=== PATIENT | female | born 1970 | race Caucasian/White ===

== ENCOUNTER 2023-09-05 17:38 | Emergency (ER) | payer MEDICAID ==
[~2023-09-05] VITALS: Ht 157.5 cm; Wt 72.0 kg
[2023-09-05 17:43] VITALS: TEMP 98.3; O2SAT 98
[2023-09-05] MEDS: SODIUM CHLORIDE 0.9% 1,000 ML IV ONE ×2 (18:52→20:30)
[2023-09-05] MEDS: FAMOTIDINE 20MG/2ML VIAL IV ONE (18:52)
[2023-09-05] MEDS: ONDANSETRON HCL 4MG/2ML INJ IV ONE (18:52)
[2023-09-05 19:01] LABS: HEMATOCRIT. 47.7 % (36.0-48.0); HEMOGLOBIN. 16.1 g/dL (12.0-16.0); MEAN CORPUSCULAR HEMOGLOBIN 29.2 pg (28.0-32.0); MEAN CORPUSCULAR HGB CONC 33.7 g/dL (31.0-37.0); MEAN CORPUSCULAR VOLUME 86.6 fL (81.0-99.0); MEAN PLATELET VOLUME 8.2 fl (7.4-10.4); PLATELET 373 x1000/uL (130-400); RED CELL DISTRIBUTION WIDTH 13.1 % (11.6-14.6); WHITE BLOOD COUNT 13.2 x1000/uL (4.5-11.0)
[2023-09-05 19:04] LABS: HCG SCREEN NEGATIVE
[2023-09-05 19:05] LABS: DIFFERENTIAL COMMENT 1
[2023-09-05 19:07] LABS: INR 0.9; PROTHROMBIN TIME 10.5 sec (9.6-11.0)
[2023-09-05 19:16] LABS: ALANINE AMINOTRANSFERASE 35 IU/L (10-49); ALBUMIN 5.7 g/dL (3.2-4.8); ASPARTATE AMINOTRANSFERASE 37 IU/L (<34); BILIRUBIN TOTAL 0.7 mg/dL (0.1-1.0); CALCIUM 10.4 mg/dL (8.7-10.4); CARBON DIOXIDE 22 mEq/L (21-32); CHLORIDE 107 mEq/L (98-107); CREATININE 1.9 mg/dL (0.6-1.0); GLUCOSE 159 mg/dL (70-105); POTASSIUM 4.1 mEq/L (3.5-5.1); PROTEIN TOTAL 10.3 g/dL (6.0-8.3); SODIUM 139 mEq/L (136-145); TROPONIN I HIGH SENSITIVITY 4 ng/L (3.0-34); UREA NITROGEN BLOOD 21 mg/dL (9-23)
[2023-09-05 19:17] LABS: ETHANOL BLOOD < 10 mg/dL (<10)
[2023-09-05 19:39] LABS: PLATELET ESTIMATE NORMAL
[2023-09-05 20:27] LABS: CLARITY URINE TURBID (CLEAR); COLOR URINE DARK YELLOW (YELLOW); GLUCOSE URINE NEGATIVE (NEGATIVE); KETONES URINE TRACE (NEGATIVE); LEUKOCYTE ESTERASE URINE NEGATIVE (NEGATIVE); NITRITE URINE NEGATIVE (NEGATIVE); OCCULT BLOOD URINE NEGATIVE (NEGATIVE); PROTEIN URINE 3+ (NEGATIVE); SPECIFIC GRAVITY URINE 1.023 (1.005-1.030)
[2023-09-05 20:50] LABS: BACTERIA URINE 4+; RBC URINE 0-2 /hpf (0-2); SQUAMOUS EPITHELIAL CELL URINE 2+ /lpf (RARE/1+); WBC URINE 0-2 /hpf (0-2)
[2023-09-05 20:51] LABS: FINE GRANULAR CASTS URINE 0-5 /lpf; HYALINE CASTS URINE 0-5 /lpf
[2023-09-05 20:52] LABS: MUCUS URINE 2+ /lpf (< = 2+)
[2023-09-05 21:02] VITALS: BP 100/70; PULSE 80; RESP 15
== END 2023-09-05 21:08 | disposition home or self-care (01) ==
LOC: ER 17:49
DX: K52.9 Noninfective gastroenteritis and colitis, unspecified (principal); I10 Essential (primary) hypertension; Z98.890 Other specified postprocedural states
CPT/HCPCS: 80053; 81003; 80320; 84703; 83605; 83690; 85025; 85610; 84484; 36415; 96361; 96374; 96375; 99284; J3490; J2405; J7030; Z7610 ×2; G0480